=== PATIENT | female | born 1995 | race Caucasian/White ===

== ENCOUNTER 2023-12-22 23:10 | Emergency (ER) | payer MEDICAID ==
[~2023-12-22] VITALS: Wt 59.1 kg
[2023-12-22] MEDS ORDERED: PROAIR HFA0.09 MG/AC IH (23:33)
[2023-12-22 23:51] LABS: BASO # 0.02 K/mm3 (0.02-0.10); EOS # 0.14 K/mm3 (0.04-0.40); EOS % 1.8 % (1.0-5.0); HEMATOCRIT 24.2 % (37.0-47.0); HEMOGLOBIN 8.5 g/dL (12.5-16.0); LYMPH# 1.61 K/mm3 (1.50-4.00); MEAN CELL VOLUME 98 fl (78-100); MEAN CORPUSCULAR HEMOGLOBIN 34 pg (27-31); MEAN CORPUSCULAR HGB CONC 35 g/dL (33-37); MEAN PLATELET VOLUME 9.9 fl (7.4-10.4); MONO # 0.53 K/mm3 (0.20-0.80); NEU # 5.46 K/mm3 (1.40-6.50); PLATELET COUNT 187 K/mm3 (130-400); RED BLOOD COUNT 2.47 M/mm3 (4.10-5.30); RED CELL DISTRIBUTION WIDTH 17.6 % (11.5-14.5); WHITE BLOOD COUNT 7.8 K/mm3 (4.8-10.8)
[2023-12-23 01:09] LABS: PH-URINE 5.5 (5.0 - 8.0); URINE APPEARANCE CLEAR (CLEAR); URINE BILIRUBIN NEGATIVE (NEGATIVE); URINE BLOOD NEGATIVE (NEGATIVE); URINE COLOR YELLOW (YELLOW); URINE GLUCOSE NEGATIVE (NEGATIVE); URINE KETONE NEGATIVE (NEGATIVE); URINE LEUKOCYTE ESTERASE NEGATIVE (NEGATIVE); URINE NITRATE NEGATIVE (NEGATIVE); URINE PROTEIN(semi-quant) NEGATIVE (NEGATIVE)
[2023-12-23 02:06] VITALS: BP 102/78
== END 2023-12-23 02:06 | disposition home or self-care (01) ==
LOC: ED 23:10
PROVIDERS: Physician Assistant
DX: R10.84 Generalized abdominal pain (principal); R07.9 Chest pain, unspecified

== ENCOUNTER 2024-01-02 22:40 | Emergency (ER) | payer MEDICAID ==
[~2024-01-02] VITALS: Ht 142.2 cm; Wt 59.1 kg
[~2024-01-02 22:40] MED LIST: PROAIR HFA0.09 MG/AC IH
[2024-01-02] MEDS ORDERED: ESTARYLLA 35 MC1 TAB PO (22:43)
[2024-01-03 01:30] VITALS: BP 102/61
== END 2024-01-03 01:30 | disposition home or self-care (01) ==
LOC: ED 22:40
DX: M25.561 Pain in right knee (principal); W18.30XA Fall on same level, unspecified, initial encounter; Y93.72 Activity, wrestling; Y92.009 Unspecified place in unspecified non-institutional (private) residence as the place of occurrence of the external cause

== ENCOUNTER → 2024-05-24 | Outpatient (CLI) | payer MEDICAID ==
[~2024-05-24] MED LIST changes: +ESTARYLLA 35 MC1 TAB PO
== END ==
LOC: LAB 17:17
DX: N92.5 Other specified irregular menstruation (principal)

== ENCOUNTER 2024-06-01 13:11 | Emergency (ER) | payer MEDICAID ==
[~2024-06-01] VITALS: Ht 142.2 cm; Wt 52.7 kg
[2024-06-01] MEDS ORDERED: NS 1,000 ML IV SCH (14:00)
[2024-06-01] MEDS ORDERED: Acetaminophen 500 MG TAB PO ONE (14:00)
[2024-06-01] MEDS ORDERED: Ondansetron 4 MG/2 ML VIAL IV ONE (14:00)
[2024-06-01 14:06] LABS: HEMATOCRIT 30.5 % (37.0-47.0); HEMOGLOBIN 11.1 g/dL (12.5-16.0); MEAN CELL VOLUME 94 fl (78-100); MEAN CORPUSCULAR HEMOGLOBIN 34 pg (27-31); MEAN CORPUSCULAR HGB CONC 36 g/dL (33-37); PLATELET COUNT 212 K/mm3 (130-400); RED BLOOD COUNT 3.25 M/mm3 (4.10-5.30); RED CELL DISTRIBUTION WIDTH 15.9 % (11.5-14.5); WHITE BLOOD COUNT 13.4 K/mm3 (4.8-10.8)
[2024-06-01 14:12] LABS: ALBUMIN 4.7 g/dL (3.5-5.0)
[2024-06-01 14:13] LABS: CALCIUM 9.4 mg/dL (8.3-10.5)
[2024-06-01 14:15] LABS: TOTAL PROTEIN 8.5 g/dL (6.4-8.3)
[2024-06-01 14:17] LABS: TOTAL BILIRUBIN 6.5 mg/dL (0.2-1.2)
[2024-06-01 14:28] LABS: URINE COLOR ORANGE (YELLOW)
[2024-06-01 14:29] LABS: URINE APPEARANCE CLEAR (CLEAR); URINE BILIRUBIN 2+ (NEGATIVE); URINE BLOOD TRACE-INTACT (NEGATIVE); URINE GLUCOSE NEGATIVE (NEGATIVE); URINE KETONE NEGATIVE (NEGATIVE); URINE LEUKOCYTE ESTERASE NEGATIVE (NEGATIVE); URINE MUCUS PRESENT (NOT PRESENT); URINE NITRATE POSITIVE (NEGATIVE); URINE PROTEIN(semi-quant) NEGATIVE (NEGATIVE)
[2024-06-01 14:34] LABS: LYMPHOCYTE 4 % (20-51); MONOCYTE 4 % (3-10); NEUTROPHILS 91 % (42-75)
[2024-06-01] MEDS ORDERED: cefTRIAXone 1 G in Water For Injection,Sterile 10 ML IV ONE (14:45)
[2024-06-01] MEDS ORDERED: Iohexol 300 - 100 ML VIAL IV ONE (15:22)
[2024-06-01] MEDS ORDERED: NS 100 ML IV ONE (15:23)
[2024-06-01] MEDS ORDERED: CEPHALEXIN500 M1 PO (16:49)
[2024-06-01 17:06] VITALS: BP 101/59
== END 2024-06-01 17:13 | disposition home or self-care (01) ==
LOC: ED 13:11
PROVIDERS: Nurse Practitioner
DX: J10.1 Influenza due to other identified influenza virus with other respiratory manifestations (principal); R16.1 Splenomegaly, not elsewhere classified; N39.0 Urinary tract infection, site not specified; R74.01 Elevation of levels of liver transaminase levels; E80.7 Disorder of bilirubin metabolism, unspecified
CPT/HCPCS: J0696; J2405; J7030; J7120; Q9967